=== PATIENT | female | born 1945 | race Caucasian/White ===

== ENCOUNTER → 2017-09-21 | Outpatient (CLI) | payer MEDICARE ==
[~2017-09-21] MED LIST: ACETYL L-CARNI500 MG PO; ALPHA LIPOIC A200 M1 PO; AMLODIPINE BESYL5 MG PO; ASTAXANTHIN4 MG PO; CARAFATE1 GM/10 ML PO; CITRUCEL POWDE454 GM PO; DEXILANT30 MG PO; DEXILANT60 MG PO; FISH OIL500 M1 PO; LIBRAX CAPSULE1 EACH; LIBRAX CAPSULE1 EACH PO; LUTEIN20 MG PO; MAGNESIUM250 MG PO; OCUVITE LUTEIN1 EACH PO; PROBIOTIC & AC1 EACH PO; RESTASIS1 EACH; RESTASIS1 EACH OU; TUMS X-STR300 MG PO; UNKNOWN BP MED; VITAMIN D31000 UNIT PO; ZANTAC300 MG PO
--- NOTE | 2017-09-24 15:56 | Diagnostic Imaging Report ---
History: Lower back pain Comparison studies: Lumbar spine MRI on 03/26/2012 Technique: Sagittal, coronal and axial T2 , sagittal T1 and IR, axial spin density oblique. Intravenous contrast: None Findings: Number of lumbar vertebral bodies:5 Alignment: Normal lordosis. Slight curvature towards the right centered at L2-3. Soft tissues: No T2 hyperintense inflammatory changes. Paraspinal muscles: Fatty infiltrated from L1 through S1.. Lower thoracic cord:Normal in signal and morphology. The tip of the conus is at T12-L1. Cauda equina: No masses. No arachnoiditis. Vertebrae: Normal in height and signal intensity. No compression fractures, infection or neoplasm. Degenerative changes: Mildly degenerated discs from T9 through L1. Patent spinal canal and foramina although evaluation is limited due to the sagittal plane. L1-L2: Mildly degenerated disc with subtle Modic type I changes along the endplates. Left asymmetric disc bulge. No significant spinal canal or foraminal stenosis. L2-L3: Moderately degenerated disc. No Modic type I changes on the endplates A 3 mm right central disc protrusion indents the thecal sac, abuts the right L3 nerve root and results in mild right spinal canal stenosis. No significant foraminal stenosis in spite of a disc bulge. L3-L4: Moderately degenerated disc. No Modic type I changes on the endplates. Moderate spinal canal stenosis is due to a disc bulge and facet arthrosis. A superimposed 3 mm right subarticular disc protrusion, with a small inferiorly migrated fragment, indents the thecal sac and abuts the right L4 nerve root. No significant foraminal stenosis. L4-L5: Moderately degenerated disc is associated with Modic type I changes on the endplates. Moderate degenerative spinal canal stenosis is due to a disc bulge and facet arthrosis. No significant foraminal stenosis. No disc herniation. L5-S1: Moderately degenerated disc. No Modic type I changes along the endplates. Patent spinal canal. No significant foraminal stenosis in spite of a disc bulge. No disc herniation. Partially visualized sacrum: No signal abnormalities. IMPRESSION: Degenerative changes from T9 through S1 as follows: 1. Mildly degenerated discs from T9 to L2, moderate from L3 to S1. Inflammatory changes along the endplates are most prominent at L4-5. 2. A small right central disc protrusion at L2-3 abuts the right L3 nerve root. 3. Spinal canal stenosis is moderate at L3-4 and at L4-5 due to disc bulges. A new 3 mm right subarticular disc protrusion at L3-4 contributes to the stenosis. The stenosis at both levels has slightly increased since 2011. 4. No significant foraminal stenosis. Signed by: Dr. Zan Blackburn M.D. on 09/24/2017 3:52 PM
== END ==
LOC: MRI 11:00
PROVIDERS: ATTEND Psychiatry & Neurology Neurology
DX: M54.17 Radiculopathy, lumbosacral region (principal); M51.37 Other intervertebral disc degeneration, lumbosacral region; M47.27 Other spondylosis with radiculopathy, lumbosacral region
CPT/HCPCS: 72148

== ENCOUNTER 2018-05-23 12:49 | Emergency (ER) | payer MEDICARE ==
[~2018-05-23] VITALS: Ht 162.6 cm; Wt 66.2 kg
--- NOTE | 2018-05-23 13:58 | Diagnostic Imaging Report ---
EXAMINATION: PA and lateral views of the chest. COMPARISON: None CLINICAL HISTORY: Status post fall 2 days ago, hit left flank on curb DISCUSSION: Lines/tubes: None. Lungs: The lungs are well inflated and clear. There is no evidence of pneumonia or pulmonary edema. Pleura: There is no pleural effusion or pneumothorax. Heart and mediastinum: Cardiomediastinal silhouette is unremarkable. Pulmonary vasculature is normal. Tortuous aorta Bones and soft tissues: No acute, displaced fracture or dislocation in these limited views. Degenerative changes in the thoracic spine. Fusion hardware noted in the lower cervical/upper thoracic spine. IMPRESSION: No acute cardiopulmonary abnormalities. Signed by: Dr. Jair Flor M.D. on 05/23/2018 1:55 PM
[2018-05-23 15:18] VITALS: BP 152/88
== END 2018-05-23 15:00 | disposition home or self-care (01) ==
LOC: FSED 12:49
DX: R06.00 Dyspnea, unspecified (principal); M54.5 Low back pain; S30.0XXA Contusion of lower back and pelvis, initial encounter; W18.39XA Other fall on same level, initial encounter; Y92.008 Other place in unspecified non-institutional (private) residence as the place of occurrence of the external cause; I10 Essential (primary) hypertension; H35.30 Unspecified macular degeneration
CPT/HCPCS: 71046; 81003; 99283

== ENCOUNTER → 2018-07-05 | Outpatient (CLI) | payer MEDICARE ==
[~2018-07-05] MED LIST changes: +IOPAMIDOL 370 MG/ML 200 ML INFUS..BTL INJ ONE; +SODIUM CHLORIDE 0.9% 50ML 50 ML ONE
[2018-07-05 11:43] LABS: BLOOD UREA NITROGEN 9 mg/dL (7-26); BUN/CREATININE RATIO 11 (6-25); CREATININE, SERUM 0.79 mg/dL (0.57-1.11); EST GLOMERULAR FILTRATION RATE > 60 ML/MIN (60-)
--- NOTE | 2018-07-05 13:49 | Diagnostic Imaging Report ---
EXAM: CT Abdomen and Pelvis WITH contrast INDICATION: Abdominal Pain COMPARISON: CT Abdomen/Pelvis 06/28/14. TECHNIQUE: Abdomen and pelvis were scanned utilizing a multidetector helical scanner from the lung base to the pubic symphysis after administration of IV contrast. Coronal and sagittal reformations were obtained. Routine protocol was performed. Scan was performed when during portal venous phase. IV CONTRAST: 100 mL of Omnipaque 300 ORAL CONTRAST: Water COMPLICATIONS: None RADIATION DOSE: Total DLP: 393 mGy*cm Estimated effective dose: (DLP x 0.015 x size factor) mSv CTDIvol has been reviewed. It is below the limits set by the Radiation Protocol Committee (RPC). FINDINGS: LINES and TUBES: None. LOWER THORAX: Two subcentimeter nodules at the left lung base are unchanged from CT in 2014, and therefore likely benign. Patchy dependent atelectasis. There is a 4 mm nodular opacity in the right lower lobe on series 2, image 1. HEPATOBILIARY: No evidence of focal lesion. No biliary ductal dilation. GALLBLADDER: No radio-opaque stones or sludge. No wall thickening. SPLEEN: No splenomegaly. PANCREAS: No focal masses or ductal dilatation. ADRENALS: No adrenal nodules KIDNEYS/URETERS: Kidneys enhance symmetrically. No evidence of hydronephrosis, solid mass, or stone. Bilateral extrarenal pelvises. GI TRACT: No evidence of wall thickening or distension. Appendix is normal. PELVIC ORGANS/BLADDER: Unremarkable. LYMPH NODES: No lymphadenopathy. VESSELS: There is mild atherosclerotic disease in the aorta and major arterial branches. PERITONEUM / RETROPERITONEUM: No free air or fluid. BONES AND SOFT TISSUES: No acute bony findings or suspicious lytic or blastic lesions. There are degenerative changes in the lumbar spine. CONCLUSION: No acute findings in the abdomen or pelvis. A 4 mm nodular opacity in the right lower lobe, likely infectious or inflammatory. In a low risk patient, no further imaging followup is suggested. If the patient is at higher risk for malignancy, an optional chest CT in 12 months may be considered. Signed by: Dr. Rafal Kaplan MD on 07/05/2018 1:46 PM
== END ==
LOC: CT 11:00
PROVIDERS: ATTEND Internal Medicine Gastroenterology
DX: R10.30 Lower abdominal pain, unspecified (principal)
CPT/HCPCS: 36415; 74177; 82565; 84520; Q9967

== ENCOUNTER → 2019-07-03 | Outpatient (CLI) | payer MEDICARE ==
[~2019-07-03] MED LIST changes: +DIATRIZOATE MEGL/DIATRIZOA SOD 30 ML BTL PO ONE
--- NOTE | 2019-07-03 13:08 | Diagnostic Imaging Report ---
CT of the abdomen and pelvis, with contrast, 07/03/2019. History: Periumbilical pain. Comparison: 07/05/2018. Technique: Multidetector CT scanning of the abdomen and pelvis was performed from the level of the lung bases to the inferior pubic rami after intravenous and oral administration of contrast. Coronal and sagittal multiplanar reformations were obtained. RADIATION DOSE: Total DLP: 271 mGy*cm Dose modulation, iterative reconstruction, and/or weight based adjustment of the mA/kV was utilized to reduce the radiation dose to as low as reasonably achievable. Discussion: LUNG BASES: Bibasilar scarring is unchanged. ABDOMEN: The liver, gallbladder, biliary tree, spleen, pancreas, adrenal glands, and kidneys are normal. Bilateral extrarenal pelves are again noted. The hepatic vein, portal vein, and splenic vein are patent. The abdominal aorta is within normal limits for size. The stomach, small bowel, and large bowel are unremarkable. Scattered colonic diverticuli are present without evidence of adjacent inflammation. There is no evidence of adenopathy or free fluid. No evidence of umbilical hernia. PELVIS: The bladder, uterus, adnexa are unremarkable. There is no evidence of free fluid or adenopathy. BONES AND SOFT TISSUES: Advanced degenerative changes are present throughout the lumbar spine without evidence of lytic or sclerotic lesion. IMPRESSION: Colonic diverticulosis without evidence of diverticulitis. Otherwise unremarkable exam. Signed by: Chucho Wen on 07/03/2019 1:05 PM
== END ==
LOC: CT 10:21
PROVIDERS: ATTEND Family Medicine Geriatric Medicine
DX: R10.84 Generalized abdominal pain (principal)
CPT/HCPCS: 74177; Q9967

== ENCOUNTER → 2019-09-17 | Day surgery (SDC) | payer MEDICARE ==
[2019-09-15 11:35] LABS: BASOPHILS # (AUTO) 0.1 (0.0-0.1); EOSINOPHILS # (AUTO) 0.2 (0.0-0.4); EOSINOPHILS % 2.6 % (0.0-6.0); HEMATOCRIT 41.3 % (34.2-44.1); HEMOGLOBIN 13.4 g/dL (12.0-16.0); LYMPHOCYTES # (AUTO) 1.8 (1.0-3.2); MEAN CORPUSCULAR HEMOGLOBIN 30.1 pg (28-32); MEAN CORPUSCULAR HGB CONC 32.4 g/dL (31-35); MEAN CORPUSCULAR VOLUME 92.8 fL (81-99); MONOCYTES # (AUTO) 0.6 (0.2-0.8); MONOCYTES % 9.8 % (4.4-11.3); NEUTROPHILS # (AUTO) 3.6 (2.1-6.9); NEUTROPHILS % 57.3 % (38.7-80.0); PLATELET COUNT 292 x10e3/uL (140-360); RED BLOOD COUNT 4.45 x10e6/uL (3.6-5.1); RED CELL DISTRIBUTION WIDTH 12.1 % (11.7-14.4)
[~2019-09-17] MED LIST changes: +BENADRYL25 M1 PO; -DIATRIZOATE MEGL/DIATRIZOA SOD 30 ML BTL PO ONE; +FENTANYL CITRATE/PF 100MCG/2 ML INJ ONE; +HYOSCYAMINE 0.125 MG TAB ONE; -IOPAMIDOL 370 MG/ML 200 ML INFUS..BTL INJ ONE; +MELATONIN3 MG PO; +NORVASC5 MG PO; +PROPOFOL IV EMULSION 10 MG/ML 50 ML VIAL ONE; -SODIUM CHLORIDE 0.9% 50ML 50 ML ONE; +[UNRECOGNIZED DRUG - OTHER] PO
[2019-09-17 12:25] VITALS: BP 127/78
--- NOTE | 2019-09-17 17:28 | Operative Report ---
DATE OF PROCEDURE: 09/17/2019 SURGEON: Suresh Seth MD PROCEDURES: EGD with biopsies and a colonoscopy with polypectomy. INDICATIONS FOR EGD: Heartburn. INDICATIONS FOR COLONOSCOPY: Surveillance colonoscopy, personal history of colon polyps. MEDICATIONS: The patient was done under MAC, please see anesthesiologist's note. PROCEDURE IN DETAIL: With the patient in the left lateral decubitus position, a flexible fiberoptic Olympus gastroscope was introduced into the esophagus under direct visualization without any difficulty. There were some patchy erythema noted in distal esophagus. The scope was then advanced with ease into the stomach. The mucosa overlying the antrum and the body revealed some diffuse erythema and low-grade to moderate edema, and biopsies were obtained and sent to stain for H. pylori. An approximately 2.5 cm submucosal lesion versus extrinsic compression was noted in the proximal body of the stomach along the anterior wall. The pylorus was of normal contour and shape. It was intubated with ease and the scope was advanced all the way to the second portion of the duodenum. The scope was then withdrawn slowly. Mucosa overlying the second portion as well as the duodenal bulb appeared to be within normal limits. The scope was then withdrawn back into the stomach and retroflexed, and mucosa overlying the fundus and the cardia appeared to be within normal limits. The scope was then straightened out, it was subsequently withdrawn, and the patient tolerated the procedure well. IMPRESSION: 1. Distal esophagitis, mild. 2. Gastritis, biopsied, biopsies sent to stain for Helicobacter pylori. 3. Extrinsic compression, approximately 2.5 cm in size, proximal body anterior wall. PLAN: Follow up histology. Continue Dexilant 60 mg 1 p.o. q.a.m. before meals. The patient will need a CT scan of the abdomen. The patient was then turned around and after adequate lubrication of the anal canal, a flexible fiberoptic Olympus colonoscope was inserted into the rectum with ease and advanced all the way to the cecum. The scope was then withdrawn slowly. Mucosa overlying the cecum, ascending colon, transverse colon, and descending colon appeared to be within normal limits. Some diverticular disease was noted in the sigmoid colon. One hyperplastic-appearing polyp was removed per hot biopsy forceps from the sigmoid colon. The rectum appeared to be within normal limits. The scope was then retroflexed into the distal rectum and small internal hemorrhoids were noted, none of which was actively bleeding. The scope was then straightened out, the scope was subsequently withdrawn, and the patient tolerated the procedure well. IMPRESSION: 1. Diverticulosis. 2. Sigmoid colon polyp, hyperplastic-appearing, hot biopsied. 3. Internal hemorrhoids, none actively bleeding. PLAN: Follow up histology. Initiate high-fiber, low-fat diet. Initiate high-fiber supplement. The patient might benefit from a followup colonoscopy in 5 years. Suresh Seth MD [facility]/KEY /[id number] cc: Bay Gleason
== END | disposition home or self-care (01) ==
LOC: OR 07:38
PROVIDERS: ATTEND Internal Medicine Gastroenterology
DX: K20.9 Esophagitis, unspecified (principal); K29.70 Gastritis, unspecified, without bleeding; K31.89 Other diseases of stomach and duodenum; K57.30 Diverticulosis of large intestine without perforation or abscess without bleeding; K63.5 Polyp of colon; K64.8 Other hemorrhoids; K21.9 Gastro-esophageal reflux disease without esophagitis; I10 Essential (primary) hypertension; K44.9 Diaphragmatic hernia without obstruction or gangrene; K58.9 Irritable bowel syndrome, unspecified; Z80.0 Family history of malignant neoplasm of digestive organs; Z86.010 Personal history of colon polyps; Z88.5 Allergy status to narcotic agent; Z88.2 Allergy status to sulfonamides; Z88.8 Allergy status to other drugs, medicaments and biological substances; Z01.812 Encounter for preprocedural laboratory examination; Z01.810 Encounter for preprocedural cardiovascular examination
CPT/HCPCS: 36415; 43239; 45384; 85025; 88305; 88312; 93005; J2704; J3010; 45378